=== PATIENT | female | born 1990 | race Caucasian/White ===

== ENCOUNTER 2016-10-15 10:12 | Day surgery (SDC) | payer OTHER ==
[2016-10-15] VITALS (11 sets, daily range): BP systolic 98–126; BP diastolic 56–86; PULSE 56–80; RESP 12–19; Ht 162.6 cm; Wt 92.0 kg
[~2016-10-15] VITALS: Ht 162.6 cm; Wt 92.0 kg
[~2016-10-15 10:12] MED LIST: CEFAZOLIN 1 GM INJ ONE; PREN1TAB49
[2016-10-15] MEDS ORDERED: LACTATED RINGER'S 1,000 ML IV SCH (11:30)
[2016-10-15 12:04] LABS: BASOPHIL # 0.1 10^3/ul (0.0-0.1); BASOPHILS % 0.5 % (0.0-2.0); EOSINOPHILS # 0.1 10^3/ul (0.0-0.5); EOSINOPHILS % 0.9 % (0.0-7.0); HEMATOCRIT 39.2 % (37.0-47.0); HEMOGLOBIN 13.3 g/dl (12.0-16.0); LYMPHOCYTES # 2.8 10^3/ul (0.8-2.9); LYMPHOCYTES % 23.7 % (15.0-51.0); MEAN CORPUSCULAR HEMOGLOBIN 30.8 pg (29.0-33.0); MEAN CORPUSCULAR VOLUME 90.6 fl (82.0-101.0); MEAN PLATELET VOLUME 7.8 fl (7.4-10.4); MONOCYTES % 8.9 % (0.0-11.0); NEUTROPHIL # 7.8 10^3/ul (1.6-7.5); PLATELET COUNT 377 10^3/UL (140-440); RED BLOOD COUNT 4.32 10^6/ul (4.20-5.40); RED CELL DISTRIBUTION WIDTH 13.5 % (11.5-14.5); UNCORRECTED WBC 11.8 10^3/ul (4.8-10.8); WHITE BLOOD COUNT 11.8 10^3/ul (4.8-10.8)
[2016-10-15 12:05] LABS: CONDITION 1
[2016-10-15] MEDS ORDERED: MIDAZOLAM 1 MG/ML 2 ML INJ ONE (12:09)
[2016-10-15] MEDS ORDERED: FENTAnyl 50 MCG/ML VIAL ONE (12:09)
--- NOTE | 2016-10-15 12:17 | PREOPHP ---
DATE OF ADMISSION: 10/15/2016 HISTORY OF PRESENT ILLNESS: Tiffany Valdez is a 26-year-old, 3, para 3, desires permanent surgical sterilization. PAST MEDICAL HISTORY: None. MEDICATIONS: vitamins. PAST SURGICAL HISTORY: None. OBSTETRICAL HISTORY: x3, vaginal deliveries, last delivery was on 07/08/2016. GYNECOLOGIC HISTORY: 13, regular 3 to 4 days. Denies any sexually transmitted diseases. Sexually active with 1 partner. SOCIAL HISTORY: Denies any smoking, drugs or alcohol. FAMILY HISTORY: None. PHYSICAL EXAMINATION: HEENT: Within normal. LUNGS: CTA bilateral. CARDIOVASCULAR: S1, S2, regular rhythm. ABDOMEN: Soft, nontender, negative distention. EXTREMITIES: Negative edema. No calf tenderness. VAGINAL: Normal external genitalia. Cervix negative CMT, negative lesions. Adnexa negative, negat cathy mass, nontender. Fundus within normal limits. ASSESSMENT: Multiparity, desires permanent surgical sterilization. PLAN: Consent for hysteroscopic tubal occlusion, possible laparoscopic bilateral tubal sterilizatio n. Risks, benefits and alternatives explained. All questions were answered. Dictated By: CHEY LUKE/SUKUMAR Conf#: [id number] DID#: [id number]
[2016-10-15] MEDS ORDERED: KETOROLAC 30 MG INJ ONE (12:33)
[2016-10-15] MEDS ORDERED: FENTAnyl 50 MCG/ML VIAL IV PRN (13:00)
[2016-10-15] MEDS ORDERED: ONDANSETRON 4 MG INJ IV PRN (13:00)
[2016-10-15] MEDS ORDERED: morphine (1 MG/ML) 10ML SYRINGE IV PRN (13:00)
[2016-10-15] MEDS ORDERED: MEPERIDINE 25 MG INJ IV PRN (13:00)
[2016-10-15] MEDS ORDERED: DIPHENHYDRAMINE 50 MG INJ IV PRN (13:00)
[2016-10-15] MEDS ORDERED: ROCURONIUM 50 MG INJ ONE (13:02)
[2016-10-15] MEDS ORDERED: NEOSTIGMINE 3 MG/3 ML SYRINGE ONE (13:02)
[2016-10-15] MEDS ORDERED: GLYCOPYRROLATE 0.4 MG INJ ONE (13:02)
[2016-10-15] MEDS ORDERED: LIDOCAINE 2% (SDV) 5 ML INJ ONE (13:02)
[2016-10-15] MEDS ORDERED: PROPOFOL 20 ML ONE (13:02)
[2016-10-15] MEDS ORDERED: ONDANSETRON 4 MG INJ ONE (13:03)
--- NOTE | 2016-10-16 11:38 | OPR ---
DATE OF OPERATION: 10/15/2016 PREOPERATIVE DIAGNOSIS: A 26-year-old 3, para 3, desires permanent surgical sterilization. POSTOPERATIVE DIAGNOSIS: A 26-year-old 3, para 3, desires permanent surgical sterilization. OPERATION PERFORMED: Hysteroscopic tubal occlusion by Essure implant. SURGEON: Mark Ramirez MD CATHEAD WORKER: None. FINDINGS: Bimanual size within normal, position anteverted. Hysteroscopic view of the uterus adequ ate. [place] normal. Adhesions absent. Placement of 3 trailing coils on the left and 3 trailing coi ls on the right. IMPLANTS: Essure #[id number]. ESTIMATED BLOOD LOSS: Minimal. SPECIMEN: None. COMPLICATIONS OF PROCEDURE: None. TYPE OF ANESTHESIA: General. DESCRIPTION OF PROCEDURE: After explaining the risks, benefits and alternatives, the patient consen ts and signs in chart. The patient was taken to the operating room where general anesthesia was obt ained without difficulty. The patient was then examined under anesthesia and found to have a small anteverted uterus with norm al adnexa. She was then placed in a dorsal lithotomy position and prepared and draped in normal devin rile fashion. A heavy weighted speculum was then placed in the patient's vagina and the anterior li p of the cervix was grasped with a single tooth tenaculum. A hysteroscope was then entered into the uterine cavity and findings noted above. Both tubal ostia were identified. The delivery catheter was then inserted into the tubal ostia up to the black marker. The delivery catheter was retracted and the device deployed. After 10 seconds, the catheter was detached from the device. The device w as in good position and we had 3 trailing coils on the right side. The procedure was repeated on th e left side with 3 trailing coils. The procedure was completed. All instruments were removed from the patient's vagina. The patient tolerated procedure well. All counts were correct x2. Before discharge, the patient was given a prescription for hysterosalpingog faisal in 3 months and control until hysterosalpingogram shows tubal occlusion. Dictated By: MARK LUKE/SUKUMAR Conf#: [id number] DID#: [id number]
== END 2016-10-15 15:25 | disposition home or self-care (01) ==
LOC: SDS 10:12
PROVIDERS: ATTEND Obstetrics & Gynecology
DX: Z30.2 Encounter for sterilization (principal); E66.9 Obesity, unspecified; Z68.34 Body mass index [BMI] 34.0-34.9, adult
CPT/HCPCS: 58565; 84703; 85025; A4264; J0690; J1885; J2250; J2405; J2710; J3010; Z7512; Z7610